=== PATIENT | female | born 1995 | race Caucasian/White ===

== ENCOUNTER 2021-09-17 06:44 | Emergency (ER) | payer OTHER ==
[~2021-09-17 06:44] MED LIST: COLACE 100MG C100 MG PO; IBUPROFEN600 MG PO
[2021-09-17 08:24] LABS: HEMOGLOBIN 16.4 gm/dl (12.3-15.3); RED BLOOD COUNT 5.19 M/UL (4.00-5.10); WHITE BLOOD COUNT 6.3 K/UL (4.5-11.0)
[2021-09-17 08:41] LABS: BUN/CREATININE RATIO 7 (0-10)
== END 2021-09-17 09:42 | disposition home or self-care (01) ==
LOC: ER1 06:44
PROVIDERS: Physician Assistant
DX: E87.6 Hypokalemia (principal)
CPT/HCPCS: 71045; 80053; 82550; 82553; 83874; 84439; 84443; 84484; 85025; 93005; 99284

== ENCOUNTER 2021-12-04 05:36 | Emergency (ER) | payer OTHER ==
[2021-12-04] MEDS ORDERED: AMOX TR-K CLV1 EAC4 PO (08:05)
[2021-12-04] MEDS ORDERED: FLONASE 0.05% N16 GM (08:05)
== END 2021-12-04 08:08 | disposition home or self-care (01) ==
LOC: ER1 05:36
DX: H66.93 Otitis media, unspecified, bilateral (principal)
CPT/HCPCS: 99282